=== PATIENT | female | born 1975 | race Caucasian/White ===

== ENCOUNTER 2023-04-05 20:57 | Inpatient (IN) | payer BC ==
--- OUTSIDE RECORDS SUMMARY | 2023-04-05 20:59 | XMS REPORT | Continuity of Care Document ---
:1975 Author Organization [facility] t Address [address] [place] [address] [address] [place] [address] Care Team Providers Name Role Phone JOSH JAIME Attending Clinician Unavailable Problems This patient has no known problems. Allergies, Adverse Reactions, Alerts This patient has no known allergies or adverse reactions. Social History Social Habit Start Date Stop Date Quantity Comments Source Gender identity [facility] Sexual orientation Method [facility] Sex Assigned At [birth year] [facility] 00:00:00 00:00:00 Smoking Status Start Date Stop Date Source Tobacco smoking consumption unknown [facility] Medications This patient has no known medications. Procedures This patient has no known procedures. Plan of Care Planned Activity Planned Date Details Comments Source Future Scheduled 2023-03-31 Hepatitis C [facility] Test 01:40:12 screening (procedure) [code = 875225350] Future Scheduled 2023-03-31 Screening for [facility] Test 01:40:12 malignant neoplasm of cervix (procedure) [code = [id number]] Future Scheduled 2023-03-31 Screening for [facility] Test 01:40:12 malignant neoplasm of colon (procedure) [code = [id number]] Future Scheduled 2023-03-31 Screening for [facility] Test 01:40:12 malignant neoplasm of colon (procedure) [code = [id number]] Future Scheduled 2023-03-31 BREAST CANCER [facility] Test 01:40:12 SCREENING [code = BREAST CANCER SCREENING] Future Scheduled 2023-03-31 INFLUENZA VACCINE Method [facility] Test 01:40:12 [code = INFLUENZA VACCINE] Future Scheduled 2023-03-31 Screening for [facility] Test 01:40:12 malignant neoplasm of colon (procedure) [code = [id number]] Future Scheduled 2023-03-31 Screening for [facility] Test 01:40:12 malignant neoplasm of colon (procedure) [code = [id number]] Future Scheduled 2023-03-31 Screening for [facility] Test 01:40:12 malignant neoplasm of colon (procedure) [code = [id number]] Future Scheduled 2023-03-31 COVID-19 VACCINE [facility] Test 01:40:12 (#1) [code = COVID-19 VACCINE (#1)] Encounters Start End Encounter Admission Attending Care Care Encounter Source Date/Time Date/Time Type Type Clinicians Facility Department ID 2021-05-04 2021-05-04 Outpatient JOSH, [facility] [id number] [employer] 00:00:00 00:00:00 JAIME 973 Method i 2021-05-04 2021-05-04 Outpatient JOSH [facility] [id number] [employer] 00:00:00 00:00:00 JAIME 027 Method i 2021-05-04 2021-05-04 Outpatient JOSH [facility] [id number] [employer] 00:00:00 00:00:00 JAIME 071 Method i 2021-05-04 2021-05-04 Outpatient JOSH, [facility] [id number] [employer] 00:00:00 00:00:00 JAIME 114 Method i 2021-05-04 2021-05-04 Outpatient JOSH [facility] [id number] [employer] 00:00:00 00:00:00 JAIME 169 Method i 2021-05-04 2021-05-04 Outpatient JOSH [facility] [id number] [employer] 00:00:00 00:00:00 JAIME 222 Method i 2021-05-04 2021-05-04 [id number] [employer] 00:[facility]:00 00:00:00 JAIME 273 Method i Results This patient has no known results.
[2023-04-05 22:18] LABS: Absolute Lymphocytes (CBC) 2.1 K/uL (0.7-4.9); Hematocrit 42.3 % (36.0-45.0); Lymphocytes % 16.7 % (15.3-44.8); MCV 99.5 fL (80-100); MPV 7.8 fL (7.6-11.3); RBC Red Blood Cell Count 4.25 M/uL (3.86-4.86)
[2023-04-05] MEDS ORDERED: ONDANSETRON 4 MG/2 ML VIAL ONE (22:23)
[2023-04-05] MEDS ORDERED: MORPHINE 4 MG/ML SYR ONE (22:23)
[2023-04-05] MEDS ORDERED: NA CHLORIDE 0.9% 1,000 ML ONE (22:23)
[2023-04-05 22:35] LABS: Albumin 3.7 g/dL (3.4-5.0); Bilirubin Total 0.4 mg/dL (0.2-1.0); Potassium 3.3 mEq/L (3.5-5.1); Protein, Total 7.5 g/dL (6.4-8.2)
[2023-04-06 00:42] LABS: Specific Gravity 1.009 (1.005-1.030); Urine Bilirubin NEGATIVE (Negative); Urine Blood Negative (Negative); Urine Clarity Clear (Clear); Urine Color Colorless (Yellow); Urine Glucose NEGATIVE (Negative); Urine Protein NEGATIVE (Negative); Urine Urobilinogen Normal (Normal)
[2023-04-06 00:45] LABS: Specific Gravity 1.009 (1.005-1.030)
--- NOTE | 2023-04-06 02:15 | EDPHYS ---
Physician Documentation [facility] [place], [place] Name: Catie Lovejose Age: 47 yrs Sex: Female : 1975 Arrival Date: 04/05/2023 Time: 20:57 Bed 13 Private MD: ED Physician Nahum Coronado HPI: 04/05 21:30 This 47 yrs old Female presents to ER via Ambulatory with complaints of Abdominal Pain. cp 21:30 The patient presents with abdominal pain that is diffuse. Onset: The symptoms/episode cp began/occurred this morning. Associated signs and symptoms: Pertinent positives: constipation, nausea. The symptoms are described as constant. Historical: - Allergies: 21:19 Codeine; os 21:19 Oxycodone; os 21:19 tramadol; os - Immunization history:: Adult Immunizations up to date. - Social history:: Smoking status: Patient denies any tobacco usage or history of. ROS: 21:35 Constitutional: Negative for body aches, chills, fever, poor PO intake. cp 21:35 Abdomen/GI: Positive for nausea, constipation, Negative for vomiting, diarrhea. cp 21:35 : Negative for urinary symptoms. Exam: 21:35 Constitutional: The patient appears in no acute distress, alert, awake, cp non-diaphoretic, non-toxic, well developed, well nourished, uncomfortable. 21:35 Head/Face: Normocephalic, atraumatic. cp 21:35 Eyes: Periorbital structures: appear normal, Conjunctiva: normal, no exudate, no injection, Sclera: no appreciated abnormality, Lids and lashes: appear normal, bilaterally. 21:35 ENT: External ear(s): are unremarkable, Nose: is normal, Mouth: Lips: moist, Oral mucosa: pink and intact, moist, Posterior pharynx: is normal, airway is patent, no erythema, no exudate. 21:35 Chest/axilla: Inspection: normal. 21:35 Cardiovascular: Rate: normal, Rhythm: regular. 21:35 Respiratory: the patient does not display signs of respiratory distress, Respirations: normal, no use of accessory muscles, no retractions, labored breathing, is not present, Breath sounds: are clear throughout, no decreased breath sounds, no stridor, no wheezing. 21:35 Abdomen/GI: Inspection: abdomen appears normal, Bowel sounds: active, all quadrants, Palpation: soft, in all quadrants, moderate abdominal tenderness, in the right upper quadrant and right lower quadrant, rebound tenderness, is not appreciated, involuntary guarding, is not appreciated. 21:35 Back: CVA tenderness, is absent. 21:35 Neuro: Orientation: to person, place \T\ time. Mentation: is normal, Motor: moves all fours, strength is normal. Vital Signs: 21:14 BP 134 / 94; Pulse 95; Resp 18; Temp 98.9; Pulse Ox 100% on R/A; Weight 88.45 kg; os 04/06 01:39 BP 116 / 68; Pulse 68; Resp 16; Pulse Ox 100% on R/A; kl MDM: 04/05 21:54 Patient medically screened. cp 22:00 Differential diagnosis: appendicitis, cholecystitis, Cholelithiasis, non-specific abd cp pain, Peritonitis, Pyelonephritis, Ureterolithiasis, urinary tract infection. 04/06 02:05 Data reviewed: vital signs, nurses notes, lab test result(s), radiologic studies, CT cp scan. 02:05 Management of patient was discussed with the following: Automobile Painter: DR Thrasher requests cp admission to hospitalist services and informing seasonal warehouse associate to schedule patient for surgery at 0900. 04/05 21:24 Order name: CBC with Diff; Complete Time: 22:41 cp 04/05 22:41 Interpretation: Normal except: WBC 12.40; BHAVANI% 75.8; NEUT A 9.4. cp 04/05 21:24 Order name: CMP; Complete Time: 22:41 cp 04/05 22:41 Interpretation: Normal except: NA 134; K 3.3; GLUC 108; ALK 40; GLOB 3.8; A/G 1.0. cp 04/05 21:24 Order name: Lipase; Complete Time: 22:41 cp 04/05 21:24 Order name: Test, Urine; Complete Time: 02:10 cp 04/05 21:24 Order name: Urinalysis w/ reflexes; Complete Time: 02:10 cp 04/05 21:24 Order name: CT Abd/Pelvis - PO and IV Contrast cp 04/05 21:24 Order name: IV Saline Lock; Complete Time: 07:04 cp 04/05 21:24 Order name: Labs collected and sent; Complete Time: 07:04 cp 04/06 02:03 Order name: NPO; Complete Time: 02:10 cp Administered Medications: 04/05 22:22 Drug: morphine IVP or IV 4 mg Route: IVP; Infused Over: 4 mins; Site: right antecubital; 04/06 01:40 Follow up: Response: No adverse reaction 04/05 22:22 Drug: Ondansetron IVP 4 mg Route: IVP; Site: right antecubital; 04/06 01:40 Follow up: Response: No adverse reaction 04/05 22:22 Drug: NS 0.9% IV 1000 ml Route: IV; Rate: 500 ml/hr; Site: right antecubital; 04/06 02:53 Drug: metroNIDAZOLE IVPB 500 mg Volume: 100 ml; Route: IVPB; Infused Over: 30 mins; Site: right antecubital; 02:53 Drug: NS 0.9% IV 1000 ml Route: IV; Rate: 125 ml/hr; Site: right antecubital; 02:53 Drug: morphine IVP or IV 4 mg Route: IVP; Infused Over: 4 mins; Site: right antecubital; 03:43 Drug: cefOXitin IVPB 1 grams Route: IVPB; Infused Over: 30 mins; Site: right kl antecubital; Disposition: 03:07 Co-signature as Attending Physician, Nahum LUI was immediately available on-site ms3 in the Emergency Department for consultation in the care of the patient. Disposition Summary: 04/06/23 02:14 Hospitalization Ordered Hospitalization Status: Observation cp Condition: Stable cp Problem: new cp Symptoms: have improved cp Bed/Room Type: Standard cp Provider: Jostin Katz(04/06/23 02:14) cp Location: [facility] ER HOLD(04/06/23 02:42) cg Room Assignment: ERHOLD-(04/06/23 02:42) cg Diagnosis - Acute appendicitis with localized peritonitis cp Forms: - Medication Reconciliation Form cp - SBAR form cp Signatures: Dispatcher [employer] Rima Pink RN RN kl Page, Corey, PA PA cp Garcia, Cindy, RN RN cg Sims, Marcus, DO DO ms3 Mouna Murillo RN RN os Corrections: (The following items were deleted from the chart) 04/05 21:21 21:19 Allergies: No Known Allergies; os os : 21:19 Allergies: NKDA; os os 04/06 02:14 02:14 Horace Mauricio cp cp 02:42 02:14 Telemetry/MedSurg (observation) cp cg 02:42 02:14 cp cg
--- NOTE | 2023-04-06 02:15 | ER ---
Nurse's Notes [facility] [place] Name: Catie Pizarro Age: 47 yrs Sex: Female : 1975 Arrival Date: 04/05/2023 Time: 20:57 Bed 13 Private MD: Diagnosis: Acute appendicitis with localized peritonitis Presentation: 04/05 21:14 Chief complaint: Patient states: Patient c/o abdominal pain since this morning. Patient os states last BM was on 04/03. Patient states that she has taken 3 stool softeners, 1 magnesium citrate, saline enema, and 2 GASX. Coronavirus screen: Vaccine status: Patient reports being unvaccinated. Ebola Screen: Patient negative for fever greater than or equal to 101.5 degrees Fahrenheit, and additional compatible Ebola Virus Disease symptoms. Initial Sepsis Screen: Does the patient meet any 2 criteria? No. Patient's initial sepsis screen is negative. Initial Sepsis Screen: Does the patient have a suspected source of infection? No. Patient's initial sepsis screen is negative. Risk Assessment: Do you want to hurt yourself or someone else? Patient reports no desire to harm self or others. Onset of symptoms was April 05, 2023. 21:14 Method Of Arrival: Ambulatory os 21:14 Acuity: DINO 3 os Historical: - Allergies: 21:19 Codeine; os 21:19 Oxycodone; os 21:19 tramadol; os - Immunization history:: Adult Immunizations up to date. - Social history:: Smoking status: Patient denies any tobacco usage or history of. Screenin:23 [facility] ED Fall Risk Assessment (Adult) History of falling in the last 3 months, kl including since admission No falls in past 3 months (0 pts) Confusion or Disorientation No (0 pts) Intoxicated or Sedated No (0 pts) Impaired Gait No (0 pts) Mobility Assist Device Used No (0 pt) Altered Elimination No (0 pt) Score/Fall Risk Level 0 - 2 = Low Risk. Abuse screen: Denies threats or abuse. Nutritional screening: No deficits noted. Tuberculosis screening: No symptoms or risk factors identified. Assessment: 22:23 Pain: Complains of pain in abdomen. GI: Bowel sounds present X 4 quads. Abdomen is kl tender to palpation X 4 quads. Reports constipation. 04/06 01:39 Reassessment: Patient appears in no apparent distress at this time. Patient and/or kl family updated on plan of care and expected duration. Pain level reassessed. Patient states symptoms have improved. Vital Signs: 04/05 21:14 BP 134 / 94; Pulse 95; Resp 18; Temp 98.9; Pulse Ox 100% on R/A; Weight 88.45 kg; os 04/06 01:39 BP 116 / 68; Pulse 68; Resp 16; Pulse Ox 100% on R/A; kl ED Course: 04/05 21:00 Patient arrived in ED. [email or web address] 21:00 Guero Best PA is PHCP. cp 21:00 Nahum Coronado DO is Attending Physician. cp 21:19 Triage completed. os 22:23 Urinalysis w/ reflexes Sent. kl 22:23 CMP Sent. kl 22:23 Lipase Sent. kl 22:24 Patient has correct armband on for positive identification. Placed in gown. Bed in low kl position. Call light in reach. Side rails up X2. 04/06 00:37 Test, Urine Sent. kl 00:57 CT Abd/Pelvis - PO and IV Contrast In Process Unspecified. EDMS 02:13 Horace Mauricio FNP-C is Hospitalizing Provider. cp 02:14 Jostin Katz MD is Hospitalizing Provider. cp 07:01 Darren Perry, WILL is Primary Nurse. bp Administered Medications: 04/05 22:22 Drug: morphine IVP or IV 4 mg Route: IVP; Infused Over: 4 mins; Site: right antecubital; 04/06 01:40 Follow up: Response: No adverse reaction 04/05 22:22 Drug: Ondansetron IVP 4 mg Route: IVP; Site: right antecubital; 04/06 01:40 Follow up: Response: No adverse reaction 04/05 22:22 Drug: NS 0.9% IV 1000 ml Route: IV; Rate: 500 ml/hr; Site: right antecubital; 04/06 02:53 Drug: metroNIDAZOLE IVPB 500 mg Volume: 100 ml; Route: IVPB; Infused Over: 30 mins; Site: right antecubital; 02:53 Drug: NS 0.9% IV 1000 ml Route: IV; Rate: 125 ml/hr; Site: right antecubital; kl 02:53 Drug: morphine IVP or IV 4 mg Route: IVP; Infused Over: 4 mins; Site: right antecubital;kl 03:43 Drug: cefOXitin IVPB 1 grams Route: IVPB; Infused Over: 30 mins; Site: right kl antecubital; Outcome: 02:14 Decision to Hospitalize by Provider. cp 08:35 Patient left the ED. bp Signatures: Dispatcher [employer] Rima Pink RN RN Guero Lepe PA PA cp Peltier, Brian, RN RN Bailee Caceres [email or web address] Mouna Murillo RN RN os Corrections: (The following items were deleted from the chart) 04/05 21:21 21:19 Allergies: No Known Allergies; os os 21:21 21:19 Allergies: NKDA; os os
[2023-04-06] MEDS ORDERED: METRONIDAZOLE 500mg IVPB 500 MG/100 ML BAG IV ONE (02:40)
[2023-04-06] MEDS ORDERED: NA CHLORIDE 0.9% 1,000 ML ONE (02:40)
[2023-04-06] MEDS ORDERED: MORPHINE 4 MG/ML SYR ONE (02:40)
--- NOTE | 2023-04-06 02:45 | P.HP ---
Certification for Inpatient Patient admitted to: Observation With expected LOS: <2 Midnights Patient will require the following post-hospital care: None Practitioner: I am a practitioner with admitting privileges, knowledge of patient current condition, hospital course, and medical plan of care. Services: Services provided to patient in accordance with Admission requirements found in Title 42 Section 412.3 of the Code of Federal Regulations <Horace Mauricio Yuriy Crenshaw - Last Filed: 04/06/23 02:42> Patient History Date of Service: 04/06/23 Reason for admission: Appendicitis History of Present Illness: 47-year-old female with history of hypertension, hypothyroidism, depression presents emergency department with chief complaint of right lower quadrant abdominal pain which began on the morning of 04/06/2023. Patient felt as if she was constipated took multiple laxatives/stool softeners without any improvement, came to the emergency department for evaluation. Her labs are significant for white blood cell count 12.4 sodium [address] abdomen pelvis noncontrast shows acute uncomplicated appendicitis. ED provider discussed case with general surgery who plans for appendectomy tomorrow morning. - Past Medical/Surgical History -: Hypertension -: Hypothyroidism -: Depression -: C-spine fusion -: [place] teeth Psychosocial/ Personal History: Patient lives at home with family - Family History Mother -: Cancer Father -: Lung disease - Social History Smoking Status: Never smoker Alcohol use: Yes CD- Drugs: No Caffeine use: Yes Place of Residence: Home <LulyHorace - Last Filed: 04/06/23 02:42> Date of Service: 04/06/23 <Jostin Katz - Last Filed: 04/06/23 12:46> Allergies codeine [Codeine] Allergy (Verified 06/16/12 09:42) Itching Review of Systems 10-point ROS is otherwise unremarkable Gastrointestinal: Nausea, Abdominal Pain <Horace Mauricio - Last Filed: 04/06/23 02:42> Physical Examination - Physical Exam General: Alert, In no apparent distress, Oriented x3 HEENT: Atraumatic, PERRLA, Mucous membr. moist/pink, EOMI, Sclerae nonicteric Neck: Supple, 2+ carotid pulse no bruit, No LAD, Without JVD or thyroid abnormality Respiratory: Clear to auscultation bilaterally, Normal air movement Cardiovascular: Regular rate/rhythm, Normal S1 S2 Capillary refill: <2 Seconds Gastrointestinal: Normal bowel sounds, Tenderness (Mild right lower quadrant tenderness) Musculoskeletal: No tenderness Integumentary: No rashes Neurological: Normal gait, Normal speech, Normal strength at 5/5 x4 extr, Normal tone, Normal affect Lymphatics: No axilla or inguinal lymphadenopathy - Studies Laboratory Data (last 24 hrs) 04/05/23 22:00: Sodium 134 L, Potassium 3.3 L, BUN 9, Creatinine 0.80, Glucose 108 H, Total Bilirubin 0.4, AST 20, ALT 33, Alkaline Phosphatase 40 L, Lipase 26 04/05/23 22:00: WBC 12.40 H, Hgb 14.0, Hct 42.3, Plt Count 262 <Horace Mauricio - Last Filed: 04/06/23 02:42> - Studies Laboratory Data (last 24 hrs) 04/05/23 22:00: Sodium 134 L, Potassium 3.3 L, BUN 9, Creatinine 0.80, Glucose 108 H, Total Bilirubin 0.4, AST 20, ALT 33, Alkaline Phosphatase 40 L, Lipase 26 04/05/23 22:00: WBC 12.40 H, Hgb 14.0, Hct 42.3, Plt Count 262 <Jostin Katz - Last Filed: 04/06/23 12:46> Assessment and Plan - Plan Assessment: Acute appendicitis Hypertension Hypothyroidism Depression Plan: Acute appendicitis N.p.o., IVF, IV antibiotics, as needed pain medications and antiemetics. General surgery consult. Currently plan is for appendectomy tomorrow morning around 9 AM. Hypertension Hypothyroidism Depression Hold oral medications for now, restart home medications when appropriate. DVT PPX: SCD Code status: Full Discharge Plan: Home Plan to discharge in: 24 Hours - Advance Directives Does patient have a Living Will: No Does patient have a Durable POA for Healthcare: No - Code Status/Comfort Care Code Status Assessed: Yes (Full code) Critical Care: No Time Spent Managing Pts Care (In Minutes): 55 <Horace Mauricio - Last Filed: 04/06/23 02:42> Physician Review: Patient Assessed, Agree with Above Assessment and Plan <Jostin Katz - Last Filed: 04/06/23 12:46>
[2023-04-06] MEDS ORDERED: NA CHLORIDE 0.9% 100 ML ONE (03:41)
[2023-04-06] MEDS ORDERED: CEFOXITIN SODIUM 1 GM/VIAL ONE (03:41)
[2023-04-06] MEDS ORDERED: ONDANSETRON 4 MG/2 ML VIAL IV PRN (04:26)
[2023-04-06] MEDS ORDERED: MORPHINE 2 MG/ML SYR IV PRN (04:26)
[2023-04-06 04:34] VITALS: BMI 33.5
[2023-04-06] MEDS: NA CHLORIDE 0.9% 1,000 ML IV SCH ×3 (07:12→21:28)
[2023-04-06] MEDS ORDERED: propofoL 200 MG/20 ML VIAL IV ONE (08:37)
[2023-04-06] MEDS ORDERED: FENTANYL CITR 100 MCG/2 ML ONE (08:37)
[2023-04-06] MEDS ORDERED: MIDAZOLAM HCL 2 MG/2 ML INJ ONE (08:37)
[2023-04-06] MEDS ORDERED: ROCURONIUM 50 MG/5 ML VIAL IV ONE (08:38)
[2023-04-06] MEDS ORDERED: GLYCOPYRROLATE 0.2 MG/ML SYR ONE (08:38)
[2023-04-06] MEDS ORDERED: ONDANSETRON 4 MG/2 ML VIAL ONE ×2 (08:38→12:23)
[2023-04-06] MEDS ORDERED: NEOSTIGMINE 1 MG/ML -10 ML VIAL ONE (08:38)
[2023-04-06] MEDS ORDERED: KETOROLAC 30 MG/ML INJ ONE (08:39)
[2023-04-06] MEDS ORDERED: LIDOCAINE 1% MPF 5 ML VIAL ONE (08:39)
[2023-04-06] MEDS ORDERED: BUPIVACAINE 0.5% PF 10 ML VIAL ONE (08:40)
[2023-04-06] MEDS ORDERED: dexAMETHasone 4 MG/ML VIAL ONE (08:41)
[2023-04-06] MEDS ORDERED: PIPER TAZO 3.375 GM in NA CHLORIDE 0.9% 100 ML IV ONE (08:45)
[2023-04-06] MEDS ORDERED: Ringers Lactate 1,000 ML IV ONE ×2 (08:46→11:50)
--- NOTE | 2023-04-06 08:48 | P.CNS ---
Date of Consult: 04/06/23 Reason for consult: Abdominal pain History of present illness: Patient is a 47-year-old female comes in with 1 day history of diffuse abdominal pain localizing to the right lower quadrant associated with mild anorexia. Patient denies nausea, vomiting, diarrhea, constipation or blood per rectum. Patient denies dysuria or hematuria. Patient denies sore throat, runny nose, cough, headache, dizziness and chest pain. Review of systems: Otherwise negative Past medical history: Hypertension Past surgical history: Neck surgery Allergies: Codeine Social history: Patient does not smoke drinks alcohol socially Family history: Lung cancer in the mother with mets to the brain and COPD in the father Vital signs: Stable, afebrile Physical exam: Awake, alert and oriented x3 Head and neck exam: Cranial nerves II through XII grossly within normal limits, no neck masses, no JVD, throat clear and neck supple Chest: Clear Heart: S1-S2 Abdomen: Soft, nondistended, positive bowel sounds, right lower quadrant tenderness with minimal rebound no rigidity or guarding Extremity: Neurovascular intact, nontender Neuro: Nonfocal Diagnostic data: Leukocytosis with CAT scan finding consistent with acute uncomplicated appendicitis Assessment: Acute appendicitis Plan/recommendation: Admit, n.p.o., IV fluids, IV antibiotics and to the OR for laparoscopic appendectomy possible open. Patient understands risk, benefits and alternatives and agrees to procedure. CC:
[2023-04-06] MEDS ORDERED: Mastisol Adhesive Liq ONE (09:50)
[2023-04-06] MEDS ORDERED: CEFOXITIN 1 GM in NA CHLORIDE 0.9% 50 ML IVPB SCH (10:00)
--- NOTE | 2023-04-06 10:02 | P.OP ---
Date of Service: 04/06/23 Preop diagnosis: Acute appendicitis Postop diagnosis: Same with suppuration Procedure performed: Laparoscopic appendectomy Surgeon: Miguel Thrasher MD Railroad Yard Worker: Elda VEE Estimated blood loss: Minimal Specimen: Appendix Findings: As above Anesthesia: General Complications: None Drains: None Fluids and blood products: Nonapplicable Disposition: Recovery room Operative note: Patient brought to the OR and placed in supine position. General anesthesia begun. Patient prepped and draped in the usual sterile fashion. Marcaine 0.5% infiltrated locally. 15 blade used to make a 1 cm infraumbilical midline incision. Subcutaneous tissue divided and bleeding controlled cautery. Fascia identified and divided. #1 Vicryl stay suture placed. Peritoneal cavity entered with sharp and blunt dissection. 12 mm trocar placed into the peritoneal cavity under direct vision. Pneumoperitoneum established. Two 5 mm trocar placed under direct vision. 1 trocar placed in the suprapubic region and the other placed in the left lower quadrant. Laparoscopy revealed acute suppurative appendicitis. Endo FLY stapling device used to divide the base of the appendix on the cecum. Mesoappendix divided as well. Minimal oozing noted from the appendiceal artery. Vascular clips used to easily control this. Appendix retrieved through the umbilicus via Endo Catch bag. Right lower quadrant pelvis irrigated. There was a small amount of menstrual blood in the pelvis. Effluent was clear after irrigation. There was no evidence of bleeding or bowel injury appreciated. Subsequently all trocars removed under direct vision. Stay sutures tied to each other to reapproximate the fascial defect. Subcutaneous wound irrigated and bleeding controlled cautery. 3-0 chromic used to approximate subcutaneous tissue and close skin. Sterile dressing applied. Patient awakened and taken to recovery room in good general condition. CC:
[2023-04-06] MEDS ORDERED: HYDROMORPHONE HCL 1 MG/ML INJ IV PRN (10:22)
[2023-04-06] MEDS ORDERED: HYDROCODONE/APAP 7.5/325 MG TAB PO PRN (10:22)
[2023-04-06] MEDS ORDERED: METRONIDAZOLE 500mg IVPB 500 MG/100 ML BAG IV SCH (11:00)
[2023-04-06] MEDS: TRAMADOL 37.5mg/APAP 325mg PER TAB PO PRN (16:52)
[2023-04-06] MEDS ORDERED: NA CHLORIDE 0.9% 500 ML IV ONE (21:15)
[2023-04-06] MEDS ORDERED: NA CHLORIDE 0.9% 1,000 ML IV ONE (23:22)
[2023-04-07] MEDS: TRAMADOL 37.5mg/APAP 325mg PER TAB PO PRN (01:38)
[2023-04-07 06:35] LABS: Absolute Lymphocytes (CBC) 1.6 K/uL (0.7-4.9); Hematocrit 23.2 % (36.0-45.0); Lymphocytes % 14.5 % (15.3-44.8); MCV 100.9 fL (80-100); MPV 7.8 fL (7.6-11.3)
[2023-04-07 06:55] LABS: Magnesium 2.1 mg/dL (1.6-2.4); Potassium 3.5 mEq/L (3.5-5.1)
[2023-04-07] MEDS ORDERED: MIDAZOLAM HCL 2 MG/2 ML INJ ONE (08:29)
[2023-04-07] MEDS ORDERED: propofoL 200 MG/20 ML VIAL IV ONE (08:29)
[2023-04-07] MEDS ORDERED: KETOROLAC 30 MG/ML INJ ONE (08:29)
[2023-04-07] MEDS ORDERED: ROCURONIUM 50 MG/5 ML VIAL IV ONE (08:29)
[2023-04-07] MEDS ORDERED: dexAMETHasone 10 MG/ML VIAL ONE (08:29)
[2023-04-07] MEDS ORDERED: ONDANSETRON 4 MG/2 ML VIAL ONE (08:29)
[2023-04-07] MEDS ORDERED: FENTANYL CITR 100 MCG/2 ML ONE (08:29)
[2023-04-07] MEDS ORDERED: LIDOCAINE 2% MPF 5 ML VIAL ONE (08:30)
--- NOTE | 2023-04-07 08:34 | RAD REPORT ---
EXAM DESCRIPTION: CT - Abdomen Pelvis W Contrast - 04/07/2023 8:00 am CLINICAL HISTORY: post op hbg decreased COMPARISON: Abdomen Pelvis W Contrast dated 04/06/2023 TECHNIQUE: Thin cut axial CT imaging of the abdomen and pelvis was performed following intravenous a dministration of 100 mL Isovue 300. Multiplanar reformats were generated and reviewed. All CT scans are performed using dose optimization technique as appropriate and may include automated exposure control or mA/KV adjustment according to patient size. FINDINGS: No suspicious findings in the lung bases. The liver, spleen, and pancreas show no suspicious findings. Gallbladder and biliary tree are also wi thout suspicious finding. Symmetric renal function is seen with no hydronephrosis or suspicious renal mass. Left lower pole 3 m illimeter calculus is again seen. No dilated bowel loops or bowel wall thickening. Postsurgical changes of appendicectomy with suture l ine in place. Moderate accumulation of hyperdense fluid in the right lower quadrant extending to the central pelvis. The some of the hyperdense material is adjacent to the cecal bulb. Mild free fluid th roughout the remainder of the abdomen. Minimal locules of gas along the anterior abdominal wall. No h ernia, mass or bulky lymphadenopathy. The urinary bladder is suboptimally distended, without signific ant finding. No suspicious bony findings. IMPRESSION: Postsurgical changes of recent appendicectomy. Moderate accumulation of hyperdense fluid in the right lower quadrant, with some components adjacent to the cecal bulb, with extension into the pelvis. Findings are concerning for intraperitoneal bleedi ng. Mild free ascites elsewhere in the abdomen. The findings were communicated to Miguel Thrasher on 04/07/2023 at 08:25 hours.
[2023-04-07] MEDS: PIPER TAZO 3.375 GM in NA CHLORIDE 0.9% 100 ML IV ONE ×2 (08:45→08:50)
[2023-04-07] MEDS: Ringers Lactate 1,000 ML IV ONE (08:50)
[2023-04-07] MEDS ORDERED: ALBUMIN HUM 5% 250 ML IV ONE (08:52)
[2023-04-07] MEDS ORDERED: SUGAMMADEX SODIUM 200 MG/2 ML VIAL IV ONE (09:36)
[2023-04-07] MEDS ORDERED: VECURONIUM 10 MG/VIAL IV ONE (10:14)
[2023-04-07] MEDS ORDERED: NS 0.9% VIAL 10 ML ONE (10:14)
[2023-04-07] MEDS: NA CHLORIDE 0.9% 1,000 ML IV SCH ×2 (10:26→16:40)
[2023-04-07] MEDS ORDERED: Mastisol Adhesive Liq ONE (10:37)
--- NOTE | 2023-04-07 10:42 | P.OP ---
Date of Service: 04/07/23 Preop diagnosis: Status post lap appendectomy, pneumoperitoneum Postop diagnosis: Same Procedure performed: Diagnostic laparoscopy, evacuation of hemoperitoneum and control of bleeding Surgeon: Miguel Thrasher MD Consultant In Ergonomics And Safety: Elda VEE Estimated blood loss: Minimal Specimen: None Findings: Minimal oozing adjacent to the appendiceal stump Anesthesia: General Complications: None Drains: Francisco-Lancaster 10 flat Fluids and blood products: Nonapplicable Disposition: Recovery room Operative note: Patient brought to the OR and placed in supine position. General anesthesia begun. Patient prepped and draped in the usual sterile fashion. Marcaine 0.5% infiltrated locally. 15 blade used to the previous incisions. Subcutaneous tissue divided and bleeding controlled cautery. Fascia identified and divided. #1 Vicryl stay suture placed. Peritoneal cavity entered with sharp and blunt dissection. 12 mm trocar placed into the peritoneal cavity under direct vision. Pneumoperitoneum established. Two 5 mm trocar placed under direct vision. 1 trocar placed in the suprapubic region and the other placed in the left lower quadrant. Laparoscopy revealed blood clots and old blood in the pelvis right lower quadrant and over the right lobe of the liver. All blood and blood clots were removed. The appendiceal stump was carefully examined. There was no evidence of any active bleeding. There was minimal oozing noted in the tissue next to the appendiceal stump. There is no evidence of bleeding on the ovary, tubes or near the uterus. There was no bleeding noted in the omentum near the appendiceal stump. After thorough irrigation and evaluation, there was no evidence of active bleeding identified. Crispin and Surgicel were placed near the appendiceal stump. Francisco-Lancaster drain placed near the appendiceal stop and pelvis and secured with 3-0 nylon. As there was no evidence of any bleeding or bruising noted, all trocars were removed under direct vision. Stay sutures were tied to each other to reapproximate the fascial defect. Subcutaneous wound irrigated and bleeding controlled cautery. 3-0 chromic used to approximate subcutaneous tissue and close skin. Sterile dressing applied. Patient awakened and taken to recovery room in good general condition. CC:
[2023-04-07] MEDS: HYDROMORPHONE HCL 1 MG/ML INJ ONE ×4 (10:53→11:13)
[2023-04-07] MEDS ORDERED: NA CHLORIDE 0.9% 0 ML ONE (11:02)
[2023-04-07] MEDS ORDERED: Ringers Lactate 1,000 ML IV ONE (11:08)
--- NOTE | 2023-04-07 11:19 | PN ---
Date of Progress Note: 04/07/2023 Subjective: The patient last night had a couple of episodes of low blood pressure, was given boluses , and blood pressure came up. This morning, I was contacted when her hemoglobin came in at 7.6 and o n admission was 14. A stat CT of the abdomen and pelvis ordered, which showed blood in the pelvis, r ight side of the abdomen as well as a little bit over the liver. As the patient had appendectomy yes terday and could have active bleeding from the appendiceal site or in the ruptured ovarian cyst, rega rdless she has significant amount of blood in the belly. Physical Examination: The patient's abdomen is distended, tender, but no peritonitis. Assessment: Status post laparoscopic appendectomy with hemoperitoneum. Plan: Diagnostic lap, possible open. The patient understands risks, benefits, and alternatives and agrees to procedure. The patient was typed and crossed and will be given 1 unit of blood and we will check H and H after that. /MODL Voice ID: [id number] Report ID: [id number]
--- NOTE | 2023-04-07 11:53 | P.PN ---
Date of Service: 04/07/23 Subjective: ROS: 10 point ROS as noted above, otherwise negative Physical Exam: GEN: Alert, oriented, NAD HEENT: Normal conjunctiva, sclera anicteric CV: Regular rate & rhythm, no edema Pulm: Nonlabored respiraitons on room air ABD: Soft, nontender, nondistended MSK: No joint tenderness Integumentary: No rashes Neuro: Normal speech, normal affect vitals reviewed Problem List: Acute appendicitis Hypertension Hypothyroidism Depression Acute appendicitis IVF Blood cultures: NGTD IV antibiotics PRN pain meds and antiemetics. General surgery consult. NPO for tentative appendectomy 04/07 clear liquids 2 uPRBCs ordered s/p 1 uPRBC transfused Hypertension Hypothyroidism Depression Hold oral medications for now, restart home medications when appropriate. VTE: Code: Dispo:
--- NOTE | 2023-04-07 13:12 | RAD REPORT ---
EXAM DESCRIPTION: Abdomen Pelvis W Contrast CLINICAL HISTORY: ABD PAIN TECHNIQUE: Contiguous axial images obtained through the abdomen and pelvis following the uneventful administration of IV contrast. Coronal and sagittal reformatted images were provided. This exam was performed according to our departmental dose-optimization program, which includes autom ated exposure control, adjustment of the mA and/or kV according to patient size and/or use of iterati ve reconstruction technique. COMPARISON: None available for comparison. FINDINGS: Lung bases: Clear Liver: Tiny hepatic hypodensity, likely tiny cyst, too small to characterize. Gallbladder and biliary system: Unremarkable Pancreas: Unremarkable Spleen: Unremarkable Adrenals: Unremarkable Kidneys: Punctate nonobstructive stone in the left kidney measuring less than 3 mm. No obstructive ur opathy. GI: No bowel obstruction. No colitis or diverticulitis. Appendix: Thickened appendix measuring approximately 1.2 cm with periappendiceal inflammatory changes , consistent with acute appendicitis. No evidence of perforation or organized periappendiceal abscess. Urinary bladder: Unremarkable Reproductive: Involuting left ovarian follicle Nonspecific fluid in the pelvis, which may be physiologic. Lymph nodes: No pathologically enlarged lymph nodes. Peritoneum: No focal fluid collection. No free air. Vessels: No abdominal aortic aneurysm. Abdominal wall: Unremarkable Bones: Unremarkable IMPRESSION: 1. Acute appendicitis without evidence of perforation or organized periappendiceal abs cess. 2. Punctate nonobstructive stone in the left kidney measuring less than 3 mm. Electronically signed by: Ariel Soria MD 04/06/2023 1:33 AM CDT Due to temporary technical issues with the PACS/Fluency reporting system, reports are being signed by the in house radiologist without review as a courtesy to ensure prompt reporting. The interpreting r adiologist is fully responsible for the content of the report.
[2023-04-07] MEDS: HYDROMORPHONE HCL 1 MG/ML INJ IV PRN ×2 (14:02→19:47)
[2023-04-07 15:01] LABS: Hematocrit 26.1 % (36.0-45.0)
[2023-04-07] MEDS: PIPER TAZO 3.375 GM in NA CHLORIDE 0.9% 100 ML IV SCH (16:39)
[2023-04-07 19:07] LABS: Hematocrit 27.7 % (36.0-45.0)
[2023-04-08] MEDS: HYDROMORPHONE HCL 1 MG/ML INJ IV PRN ×4 (01:28→19:34)
[2023-04-08] MEDS: PIPER TAZO 3.375 GM in NA CHLORIDE 0.9% 100 ML IV SCH ×3 (01:32→16:57)
[2023-04-08] MEDS ORDERED: NA CHLORIDE 0.9% 100 ML ONE (01:41)
[2023-04-08] MEDS: NA CHLORIDE 0.9% 1,000 ML IV SCH ×2 (06:15→16:57)
[2023-04-08] MEDS: TRAMADOL 37.5mg/APAP 325mg PER TAB PO PRN (06:34)
[2023-04-08 06:36] LABS: Absolute Lymphocytes (CBC) 1.7 K/uL (0.7-4.9); Hematocrit 24.8 % (36.0-45.0); Lymphocytes % 19.8 % (15.3-44.8); MCV 97.8 fL (80-100); MPV 8.1 fL (7.6-11.3); RBC Red Blood Cell Count 2.53 M/uL (3.86-4.86)
--- NOTE | 2023-04-08 12:25 | P.PN ---
Subjective Date of Service: 04/08/23 Chief Complaint: Appendicitis/ SP exp lap Doign well Lower abdominal pain .HGB stabel post op bleed Review of Systems Gastrointestinal: As per HPI Physical Examination - Vital Signs Temperature: 99 F Blood Pressure: 118/56 Pulse: 84 Respirations: 16 Pulse Ox (%): 97 - Physical Exam General: Alert, In no apparent distress, Oriented x3 Cardiovascular: No edema Gastrointestinal: Hypoactive, Tenderness (lower abdoman has a IVANIA drain) Assessment And Plan - Current Problems (Diagnosis) (1) Appendicitis Current Visit: Yes Status: Acute Plan: AW appendicitis Resected developed op bleeding. Doign well now. HGB stable. Exp lap again labs reviewedCw present meds and Ab. Dc AM Qualifiers: Appendicitis type: acute appendicitis Physician Review: Patient Assessed, Agree with Above Assessment and Plan
--- NOTE | 2023-04-08 13:52 | PN ---
Date of Progress Note: 04/08/2023 Subjective: The patient is awake, alert, feels much better. Objective: Vital Signs: Stable. She is afebrile. Abdomen: IVANIA drain is putting out serosanguineous fluid, greater than 200 per shift. Extremities: Dressing is clean, dry, and intact. Laboratory Data: Her post transfusion hemoglobin was 8.6 and today is 8.3 and 24.8. Assessment: Status was lap appy and diagnostic laparoscopy for hemoperitoneum. Recommendations: The patient is clinically doing better. We will encourage ambulation, start Hemocy te-Plus and Colace. The patient will most likely be discharged home tomorrow on oral antibiotics and pain medicine. /MODL Voice ID: [id number] Report ID: [id number]
[2023-04-08] MEDS: DOCUSATE NA 100 MG CAP PO SCH (19:34)
[2023-04-09] MEDS: PIPER TAZO 3.375 GM in NA CHLORIDE 0.9% 100 ML IV SCH ×2 (01:10→08:00)
[2023-04-09] MEDS: NA CHLORIDE 0.9% 1,000 ML IV SCH (01:22)
[2023-04-09 05:29] VITALS: O2SAT 98
[2023-04-09 06:22] LABS: Absolute Lymphocytes (CBC) 2.8 K/uL (0.7-4.9); Lymphocytes % 35.4 % (15.3-44.8); MCV 96.9 fL (80-100); MPV 7.7 fL (7.6-11.3); RBC Red Blood Cell Count 2.69 M/uL (3.86-4.86)
[2023-04-09] MEDS: DOCUSATE NA 100 MG CAP PO SCH (07:59)
[2023-04-09] MEDS ORDERED: FE SULF/FA/VIT B COMP & C TAB PO SCH (08:00)
[2023-04-09 08:17] VITALS: BP 139/73; TEMP 98.2
--- NOTE | 2023-04-09 08:22 | P.DS ---
Admission Date: 04/07/23 Discharge Date: 04/09/23 Disposition: ROUTINE DISCHARGE Discharge Condition: FAIR Reason for Admission: Appendicitis/ SP exp lap - Problems (1) Appendicitis Current Visit: Yes Status: Acute Qualifiers: Appendicitis type: acute appendicitis Brief History of Present Illness: Patient is 47 years of age admitted with appendicitis and postoperatively she developed some bleeding and had to go another surgery Hospital Course: Patient's course as stated above placated by bleeding at the time of discharge patient alert oriented responsive cooperative vital signs stable she was transfused 2 units of packed red blood cells patient underwent another expiratory laparotomy to control the bleeding patient was ambulating eating and drinking vital signs all stable hemoglobin 8.7 patient did have a IVANIA drain further discharge instruction pain medications according to Dr. Thrasher on examination alert oriented responsive cooperative chest clear abdomen soft minimal tenderness bowel sounds positive Vital Signs/Physical Exam: Temp Pulse Resp BP Pulse Ox 98.2 F 81 18 139/73 98 04/09/23 08:00 04/09/23 08:00 04/09/23 08:00 04/09/23 08:00 04/09/23 08:00 Laboratory Data at Discharge: WBC 7.90 thou/uL (4.3-10.9) 04/09/23 06:06 Hgb 8.7 g/dL (12.0-15.0) L 04/09/23 06:06 Hct 26.0 % (36.0-45.0) L 04/09/23 06:06 Plt Count 241 thou/uL (152-406) 04/09/23 06:06 Sodium 138 mEq/L (136-145) 04/07/23 05:56 Potassium 3.5 mEq/L (3.5-5.1) 04/07/23 05:56 BUN 6 mg/dL (7-18) L 04/07/23 05:56 Creatinine 0.45 mg/dL (0.55-1.02) L 04/07/23 05:56 Glucose 88 mg/dL (74-106) 04/07/23 05:56 Magnesium 2.1 mg/dL (1.6-2.4) 04/07/23 05:56 Total Bilirubin 0.4 mg/dL (0.2-1.0) 04/05/23 22:00 AST 20 U/L (15-37) 04/05/23 22:00 ALT 33 U/L (13-56) 04/05/23 22:00 Alkaline Phosphatase 40 U/L (45-117) L 04/05/23 22:00 Lipase 26 U/L (13-75) 04/05/23 22:00 Home Medications: Amlodipine Besylate 1 tab PO DAILY 04/06/23 Ergocalciferol (Vitamin D2) [Vitamin D 50,000 Unit Cap] 1 tab PO SEECOM 04/06/23 Fluoxetine HCl 1 tab PO DAILY 04/06/23 Losartan/Hydrochlorothiazide [Losartan-Hctz 100-25 mg Tab] 1 tab PO DAILY 04/06/23 Thyroid Tab [[place] Thyroid*] 1 tab PO DAILY 04/06/23 Physician Discharge Instructions: Patient to contact Dr. Thrasher's office for further discharge instructions regarding wound care antibiotics and pain medications and also regarding follow- up Diet: Regular Activity: Ad nani Followup: Jong Melo MD [Primary Care Provider] - Miguel Thrasher MD [ACTIVE - CAN ADMIT] -
--- NOTE | 2023-04-09 11:25 | PN ---
Date of Progress Note: 04/09/2023 Subjective: The patient is awake, alert. No complaint. Tolerating diet. Ready to go home. Objective: Vital Signs: Stable, afebrile. Abdomen: Benign. Laboratory Data: H and H are 8.7 and 26. Assessment: Status post lap appy, diagnostic lap. Recommendations: The patient cleared for surgery for discharge. Followup instructions given. Presc ription called in. Follow up in my office in 1 week. /MODL Voice ID: [id number] Report ID: [id number]
== END 2023-04-09 10:34 | disposition home or self-care (01) | DRG 341 ==
LOC: ER 20:57 → ERHOLD 04-06 02:39 → 4TH 04-06 12:31 → OBSVTOIN 04-07 13:38
PROVIDERS: ADMIT Internal Medicine; ATTEND Internal Medicine Sleep Medicine
PROC: 0DTJ4ZZ Resection of Appendix, Percutaneous Endoscopic Approach (ICD-10-PCS; principal; 2023-04-06 09:00)
PROC: 0W9G4ZZ Drainage of Peritoneal Cavity, Percutaneous Endoscopic Approach (ICD-10-PCS; 2023-04-07)
PROC: 0W3G4ZZ Control Bleeding in Peritoneal Cavity, Percutaneous Endoscopic Approach (ICD-10-PCS; 2023-04-07)
PROC: 30233N1 Transfusion of Nonautologous Red Blood Cells into Peripheral Vein, Percutaneous Approach (ICD-10-PCS; 2023-04-07)
DX: K35.30 Acute appendicitis with localized peritonitis, without perforation or gangrene (principal); K66.1 Hemoperitoneum; I10 Essential (primary) hypertension; F32.A Depression, unspecified; E78.5 Hyperlipidemia, unspecified; E03.9 Hypothyroidism, unspecified; K59.00 Constipation, unspecified; Z88.5 Allergy status to narcotic agent; Z79.899 Other long term (current) drug therapy
CPT/HCPCS: 36415; 74177; 80048; 80053; 81003; 81025; 83605; 83690; 83735; 85014; 85018; 85025; 86850; 86900; 86901; 86920; 87040; 88304; 94010; 96374; 96375; 99284; A4216; G0378; J0694; J1100; J1170; J2001; J2250; J2405; J2543; J2704; J2710; J3010; J7030; J7050; J7120; P9016; P9045; Q9967